=== PATIENT | male | born 1945 | race Caucasian/White ===

== ENCOUNTER 2023-05-09 10:39 | Outpatient (CLI) | payer OTHER | END 2023-05-09 10:53 | disposition home or self-care (01) | LOC: MRI 10:39 | PROVIDERS: ATTEND Orthopaedic Surgery | DX: M25.561 Pain in right knee (principal); M25.562 Pain in left knee; S83.201A Bucket-handle tear of unspecified meniscus, current injury, left knee, initial encounter | CPT/HCPCS: 73718 ==